=== PATIENT | female | born 1955 | race Two or more races ===

== ENCOUNTER 2021-07-13 21:41 | Emergency (ER) | payer MEDICARE, OTHER ==
[~2021-07-13] VITALS: Ht 167.6 cm; Wt 68.0 kg
[2021-07-14] MEDS ORDERED: HYDROcodone-ACET 5/325MG TAB PO ONE (03:30)
[2021-07-14] MEDS ORDERED: ONDANSETRON ODT 4 MG TAB PO ONE (03:30)
[2021-07-14 06:32] VITALS: BP 160/69
== END 2021-07-14 05:51 | disposition home or self-care (01) ==
LOC: ER 21:41 → EDBD 21:41 → ER 07-14 05:51
DX: S22.20XA Unspecified fracture of sternum, initial encounter for closed fracture (principal); S39.012A Strain of muscle, fascia and tendon of lower back, initial encounter; S20.219A Contusion of unspecified front wall of thorax, initial encounter; Z88.6 Allergy status to analgesic agent; V43.52XA Car driver injured in collision with other type car in traffic accident, initial encounter; Y93.89 Activity, other specified; Y92.89 Other specified places as the place of occurrence of the external cause; Y99.8 Other external cause status
CPT/HCPCS: 70450; 71250; 72125; 72128; 72131; 93005; 99285; Q0162